=== PATIENT | female | born 1955 | race Asian ===

== ENCOUNTER → 2017-05-29 | Outpatient (CLI) | payer BC | END | disposition home or self-care (01) | LOC: RADPV 08:55 | PROVIDERS: ATTEND Hospitalist | DX: N28.1 Cyst of kidney, acquired (principal); N18.3 Chronic kidney disease, stage 3 (moderate) | CPT/HCPCS: 76770 ==

== ENCOUNTER 2017-08-02 12:05 | Emergency (ER) | payer BC ==
[~2017-08-02] VITALS: Ht 162.6 cm; Wt 55.5 kg
[2017-08-02] MEDS ORDERED: HYDR25TA PO (12:41)
[2017-08-02] MEDS ORDERED: LISI-660 PO (12:41)
[2017-08-02] MEDS ORDERED: METF500T4 PO (12:41)
[2017-08-02] MEDS ORDERED: SIMV-259 PO (12:41)
[2017-08-02 12:42] LABS: GLUCOSE,POINT OF CARE 213 MG/DL (70-110)
[2017-08-02] MEDS ORDERED: KETOROLAC TROMETHAMINE 60 MG/2 ML VIAL IM ONE (13:15)
[2017-08-02 13:58] VITALS: BP 109/67
[2017-08-02 14:31] LABS: APPEARANCE,URINE CLEAR (CLEAR); BILIRUBIN,URINE NEGATIVE (NEGATIVE); GLUCOSE, URINE (UA) 500 mg/dL (NEGATIVE); KETONES,URINE NEGATIVE (NEGATIVE); LEUKOCYTE ESTERASE ,URINE NEGATIVE (NEGATIVE); NITRATE,URINE NEGATIVE (NEGATIVE); OCCULT BLOOD,URINE SMALL (NEGATIVE); PROTEIN,URINE NEGATIVE (NEGATIVE); UROBILINOGEN,URINE 0.2 mg/dL (<=1.0)
[2017-08-02 14:48] LABS: BACTERIA,URINE None Seen /HPF (None Seen); RBC,URINE 0-2 /HPF (0-2); SQUAMOUS EPITHELIAL CELL,UR Few /LPF (None Seen); WBC,URINE 0-2 /HPF (0-5)
[2017-08-02 14:49] LABS: RENAL EPITHELIAL CELLS,URINE Rare /LPF (None Seen); TRANSITIONAL EPI CELLS,URINE None Seen /LPF (None Seen)
== END 2017-08-02 14:21 | disposition home or self-care (01) ==
LOC: EMS 12:05
DX: S76.012A Strain of muscle, fascia and tendon of left hip, initial encounter (principal); S46.911A Strain of unspecified muscle, fascia and tendon at shoulder and upper arm level, right arm, initial encounter; E11.9 Type 2 diabetes mellitus without complications; X58.XXXA Exposure to other specified factors, initial encounter; Y93.01 Activity, walking, marching and hiking; Y92.89 Other specified places as the place of occurrence of the external cause; Y99.8 Other external cause status
CPT/HCPCS: 81001; 82962; 96372; 99283; J1885

== ENCOUNTER → 2017-10-12 | Outpatient (CLI) | payer BC ==
[~2017-10-12] MED LIST: HYDR25TA PO; LISI-660 PO; METF500T6 PO; SIMV-259 PO
== END | disposition home or self-care (01) ==
LOC: RADPV 09:11
PROVIDERS: ATTEND Family Medicine
DX: M25.511 Pain in right shoulder (principal)

== ENCOUNTER → 2018-09-25 | Outpatient (CLI) | payer BC ==
[~2018-09-25] MED LIST changes: +METF-960 PO; -METF500T6 PO
== END | disposition home or self-care (01) ==
LOC: RADPV 10:56
PROVIDERS: ATTEND Nurse Practitioner
DX: R14.0 Abdominal distension (gaseous) (principal); R10.9 Unspecified abdominal pain; I12.9 Hypertensive chronic kidney disease with stage 1 through stage 4 chronic kidney disease, or unspecified chronic kidney disease; E11.22 Type 2 diabetes mellitus with diabetic chronic kidney disease; N18.3 Chronic kidney disease, stage 3 (moderate)
CPT/HCPCS: 76700